=== PATIENT | male | born 1950 | race Caucasian/White ===

== ENCOUNTER 2019-10-16 18:07 | Inpatient (IN) | payer OTHER, MEDICARE ==
[~2019-10-16] VITALS: Ht 188 cm; Wt 99.0 kg
[2019-10-16 18:45] LABS: BASOPHILS % (AUTO) 0.3 % (0-1); EOSINOPHILS # (AUTO) 0.2 X10'3 (0-0.9); EOSINOPHILS % (AUTO) 1.6 % (0-6); HEMATOCRIT 34.9 % (42.0-52.0); HEMOGLOBIN 11.2 g/dl (14.0-17.9); LYMPHOCYTES # (AUTO) 0.5 X10'3 (1.1-4.8); LYMPHOCYTES % (AUTO) 5.6 % (21-51); MEAN CORPUSCULAR HEMOGLOBIN 27.9 PG (27.0-31.0); MEAN CORPUSCULAR HGB CONC 32.1 g/dL (33.0-36.5); MEAN CORPUSCULAR VOLUME 86.8 FL (78-98); MEAN PLATELET VOLUME 7.4 FL (7.4-10.4); MONOCYTES # (AUTO) 0.6 X10'3 (0-0.9); MONOCYTES % (AUTO) 6.5 % (2-12); NEUTROPHILS # (AUTO) 8.4 X10'3 (1.8-7.7); PLATELET COUNT 263 X10'3 (140-440); RED BLOOD COUNT 4.02 X10'6 (4.70-6.10); RED CELL DISTRIBUTION WIDTH 26.1 % (11.5-14.5); WHITE BLOOD COUNT 9.7 X10'3 (4.5-11.0)
[2019-10-16 19:04] LABS: ANISOCYTOSIS 3+; HYPOCHROMASIA 1+; MICROCYTOSIS FEW; PLATELET ESTIMATE NORMAL; POLYCHROMASIA 1+
[2019-10-16 19:05] LABS: ALANINE AMINOTRANSFERASE 20 U/L (12-78); ALBUMIN 2.8 G/DL (3.4-5.0); ALBUMIN/GLOBULIN RATIO 0.6 (1.1-1.5); ALKALINE PHOSPHATASE 135 IU/L (46-116); ANION GAP 9 (8-16); ASPARTATE AMINO TRANSFERASE 21 U/L (10-37); BILIRUBIN,TOTAL 0.6 MG/DL (0.1-1.0); BLOOD UREA NITROGEN 54 MG/DL (7-18); CALCIUM 8.3 MG/DL (8.5-10.1); CHLORIDE 103 MMOL/L (99-107); CREATININE 2.45 MG/DL (0.60-1.10); ELLIPTOCYTES FEW; GLUCOSE 181 MG/DL (70-104); POTASSIUM 4.2 MMOL/L (3.5-5.1); SCHISTOCYTES FEW; SODIUM 140 MMOL/L (135-145); TEAR DROP CELLS FEW; TOTAL CARBON DIOXIDE 27.9 MMOL/L (24-32); TOTAL PROTEIN 7.8 G/DL (6.4-8.2); eGFR 27 ML/MIN
[2019-10-16] MEDS ORDERED: furosemide 10 MG/1 ML 10ml inj IV ONE (20:25)
[2019-10-16] MEDS ORDERED: WARF-113 PO (20:54)
[2019-10-16] MEDS ORDERED: HYDR200T84 PO (20:54)
[2019-10-16] MEDS ORDERED: FURO-150 PO (20:54)
[2019-10-16] MEDS ORDERED: PRED5TAB PO (20:54)
[2019-10-16] MEDS ORDERED: HYDR-4069 PO (20:54)
[2019-10-16] MEDS ORDERED: ALLO100T49 PO (20:54)
[2019-10-16 21:06] LABS: D-DIMER 1.83 MG/L FEU (0-0.50)
[2019-10-16] MEDS ORDERED: ondansetron/PF 4mg/2ml inj IV PRN (21:30)
[2019-10-16] MEDS ORDERED: mag hydrox/Alum hydrox/simeth 30ml oral suspension PO PRN (21:30)
[2019-10-16] MEDS ORDERED: magnesium hydroxide 30ml (MOM) UD suspension PO PRN (21:30)
[2019-10-16] MEDS ORDERED: acetaminophen 325mg tablet PO PRN (21:30)
[2019-10-16] MEDS ORDERED: warfarin 10mg tablet PO ONE (22:10)
--- NOTE | 2019-10-16 22:16 | NUR ---
PER LAB DEIDRE ALVAREZ SWAB IS NEGATIVE. ED ISIAH PEDRO AND ED HORSE [employer]TER PATTY NOTIFIED.
[2019-10-16 22:45] VITALS: BP 115/72
[2019-10-16] MEDS ORDERED: ISOS120T13 PO (22:45)
[2019-10-16] MEDS: hydrALAZINE 25 MG tablet PO SCH (23:03)
[2019-10-17] MEDS ORDERED: predniSONE 1 mg tablet PO ONE (00:50)
[2019-10-17 02:00] VITALS: BP 130/60
[2019-10-17] MEDS ORDERED: acetaminophen 325mg tablet PO PRN (03:50)
--- NOTE | 2019-10-17 06:29 | NUR ---
Patient in room PCU 3012. I have received report from JOSE M Merrill and had the opportunity to ask questions and assume patient care.
--- NOTE | 2019-10-17 06:30 | NUR ---
Problems reprioritized. Patient report given, questions answered & plan of care reviewed with JOSE M Kunz.
[2019-10-17 07:00] VITALS: BP 103/71
[2019-10-17] MEDS ORDERED: warfarin 5mg tablet PO SCH (08:00)
[2019-10-17] MEDS ORDERED: hydroxychloroquine 200mg tablet PO SCH ×2 (08:00→08:29)
[2019-10-17] MEDS: hydrALAZINE 25 MG tablet PO SCH ×2 (08:14→15:31)
[2019-10-17] MEDS: furosemide 20 MG/2 ML vial IV SCH ×2 (08:16→20:52)
[2019-10-17] MEDS: predniSONE 1 mg tablet PO SCH (08:46)
[2019-10-17] MEDS: hydroxychloroquine 200mg tablet PO SCH (08:46)
[2019-10-17 11:00] VITALS: BP 107/68
[2019-10-17 15:00] VITALS: BP 124/78
[2019-10-17 15:29] LABS: BASOPHILS # (AUTO) 0.1 X10'3 (0-0.2); BASOPHILS % (AUTO) 1.1 % (0-1); EOSINOPHILS # (AUTO) 0.1 X10'3 (0-0.9); HEMATOCRIT 33.4 % (42.0-52.0); HEMOGLOBIN 10.7 g/dl (14.0-17.9); LYMPHOCYTES # (AUTO) 0.4 X10'3 (1.1-4.8); LYMPHOCYTES % (AUTO) 5.5 % (21-51); MEAN CORPUSCULAR HEMOGLOBIN 27.9 PG (27.0-31.0); MEAN CORPUSCULAR HGB CONC 32.1 g/dL (33.0-36.5); MEAN CORPUSCULAR VOLUME 86.9 FL (78-98); MEAN PLATELET VOLUME 7.8 FL (7.4-10.4); MONOCYTES # (AUTO) 0.6 X10'3 (0-0.9); MONOCYTES % (AUTO) 8.2 % (2-12); NEUTROPHILS # (AUTO) 6.5 X10'3 (1.8-7.7); NEUTROPHILS % (AUTO) 84.2 % (42-75); PLATELET COUNT 226 X10'3 (140-440); RED BLOOD COUNT 3.84 X10'6 (4.70-6.10); RED CELL DISTRIBUTION WIDTH 26.2 % (11.5-14.5); WHITE BLOOD COUNT 7.7 X10'3 (4.5-11.0)
[2019-10-17 15:55] LABS: ALANINE AMINOTRANSFERASE 20 U/L (12-78); ALBUMIN 2.7 G/DL (3.4-5.0); ALBUMIN/GLOBULIN RATIO 0.6 (1.1-1.5); ALKALINE PHOSPHATASE 128 IU/L (46-116); ANION GAP 6 (8-16); ASPARTATE AMINO TRANSFERASE 21 U/L (10-37); BILIRUBIN,TOTAL 0.5 MG/DL (0.1-1.0); BLOOD UREA NITROGEN 55 MG/DL (7-18); BUN/CREATININE RATIO 23.5 (5.4-32.0); CALCIUM 8.1 MG/DL (8.5-10.1); CHLORIDE 105 MMOL/L (99-107); CREATININE 2.34 MG/DL (0.60-1.10); GLUCOSE 138 MG/DL (70-104); POTASSIUM 4.2 MMOL/L (3.5-5.1); SODIUM 140 MMOL/L (135-145); TOTAL CARBON DIOXIDE 28.8 MMOL/L (24-32); TOTAL PROTEIN 7.2 G/DL (6.4-8.2); eGFR 28 ML/MIN
[2019-10-17 16:00] LABS: ANISOCYTOSIS 3+; HYPOCHROMASIA 1+; PLATELET ESTIMATE NORMAL; SCHISTOCYTES FEW
--- NOTE | 2019-10-17 16:09 | NUR ---
PAGER ID: [phone] MESSAGE: [id number] - Scott Souza: CHRISTY pt last troponin 0.05 -[id number] [phone]
[2019-10-17 18:00] VITALS: BP 112/77
--- NOTE | 2019-10-17 18:21 | NUR ---
Problems reprioritized. Patient report given, questions answered & plan of care reviewed with [place] RN.
--- NOTE | 2019-10-17 18:30 | NUR ---
Patient in room PCU 3012. I have received report from Joaquina SALGUERO and had the opportunity to ask questions and assume patient care.
[2019-10-17] MEDS ORDERED: warfarin 5mg tablet PO ONE (21:00)
[2019-10-17 22:00] VITALS: BP 122/80
[2019-10-18] MEDS: hydrALAZINE 25 MG tablet PO SCH ×2 (00:23→07:25)
[2019-10-18 02:00] VITALS: BP 131/85
[2019-10-18 05:22] LABS: BASOPHILS # (AUTO) 0.1 X10'3 (0-0.2); BASOPHILS % (AUTO) 1.1 % (0-1); EOSINOPHILS # (AUTO) 0.2 X10'3 (0-0.9); EOSINOPHILS % (AUTO) 3.3 % (0-6); HEMATOCRIT 30.4 % (42.0-52.0); HEMOGLOBIN 9.9 g/dl (14.0-17.9); LYMPHOCYTES # (AUTO) 0.7 X10'3 (1.1-4.8); MEAN CORPUSCULAR HEMOGLOBIN 28.2 PG (27.0-31.0); MEAN CORPUSCULAR HGB CONC 32.6 g/dL (33.0-36.5); MEAN CORPUSCULAR VOLUME 86.6 FL (78-98); MEAN PLATELET VOLUME 7.7 FL (7.4-10.4); MONOCYTES # (AUTO) 0.8 X10'3 (0-0.9); MONOCYTES % (AUTO) 11.4 % (2-12); NEUTROPHILS # (AUTO) 5.1 X10'3 (1.8-7.7); NEUTROPHILS % (AUTO) 74.2 % (42-75); PLATELET COUNT 206 X10'3 (140-440); RED CELL DISTRIBUTION WIDTH 25.5 % (11.5-14.5); WHITE BLOOD COUNT 6.9 X10'3 (4.5-11.0)
[2019-10-18 05:43] LABS: ALANINE AMINOTRANSFERASE 18 U/L (12-78); ALBUMIN 2.5 G/DL (3.4-5.0); ALBUMIN/GLOBULIN RATIO 0.6 (1.1-1.5); ALKALINE PHOSPHATASE 109 IU/L (46-116); ANION GAP 10 (8-16); ASPARTATE AMINO TRANSFERASE 26 U/L (10-37); BILIRUBIN,TOTAL 0.5 MG/DL (0.1-1.0); BLOOD UREA NITROGEN 60 MG/DL (7-18); BUN/CREATININE RATIO 26.5 (5.4-32.0); CHLORIDE 105 MMOL/L (99-107); CREATININE 2.26 MG/DL (0.60-1.10); GLUCOSE 104 MG/DL (70-104); SODIUM 141 MMOL/L (135-145); TOTAL CARBON DIOXIDE 25.8 MMOL/L (24-32); TOTAL PROTEIN 6.6 G/DL (6.4-8.2); eGFR 29 ML/MIN
[2019-10-18 05:46] LABS: POTASSIUM 3.9 MMOL/L (3.5-5.1)
--- NOTE | 2019-10-18 06:05 | NUR ---
Problems reprioritized. Patient report given, questions answered & plan of care reviewed with Joaquina SALGUERO.
--- NOTE | 2019-10-18 06:08 | NUR ---
Patient in room PCU 3012. I have received report from JOSE M Salvador and had the opportunity to ask questions and assume patient care.
[2019-10-18 07:00] VITALS: BP 115/73
[2019-10-18 07:07] LABS: ANISOCYTOSIS 3+; PLATELET ESTIMATE NORMAL
[2019-10-18 07:08] LABS: POIKILOCYTOSIS FEW; POLYCHROMASIA FEW
[2019-10-18] MEDS: furosemide 20 MG/2 ML vial IV SCH (07:25)
[2019-10-18] MEDS: hydroxychloroquine 200mg tablet PO SCH (07:25)
[2019-10-18] MEDS: predniSONE 1 mg tablet PO SCH (07:25)
[2019-10-18 11:00] VITALS: BP 124/9
[2019-10-18] MEDS ORDERED: FURO40TA4 PO (11:49)
--- NOTE | 2019-10-18 14:47 | NUR ---
Pt stable for discharge. Provided discharge education and instructions and answered any questions or concerns pt may have. New medication sent to preferred pharmacy. Attempted multiple times to make appt with Dr. Hutchinson r/t pt CHF dx, but there was no answer from staff. Tele monitor removed. PIV removed, cannula intact. All belongings sent with pt. Aide transported pt downstairs via wheelchair for pt to be picked up by in private vehicle.
[2019-10-18] MEDS ORDERED: warfarin 5mg tablet PO ONE (21:00)
== END 2019-10-18 14:58 | disposition home or self-care (01) | DRG 292 ==
LOC: ER 18:08 → ED HOLD 21:26 → PCU 3S 23:15
PROVIDERS: ADMIT Internal Medicine; ATTEND Internal Medicine
PROC: 4A02XM4 Measurement of Cardiac Total Activity, External Approach (ICD-10-PCS; principal; 2019-10-17)
PROC: 3E033HZ Introduction of Radioactive Substance into Peripheral Vein, Percutaneous Approach (ICD-10-PCS; 2019-10-17)
DX: I50.23 Acute on chronic systolic (congestive) heart failure (principal); N17.9 Acute kidney failure, unspecified; D64.9 Anemia, unspecified; N18.9 Chronic kidney disease, unspecified; I25.10 Atherosclerotic heart disease of native coronary artery without angina pectoris; M19.90 Unspecified osteoarthritis, unspecified site; I48.0 Paroxysmal atrial fibrillation; Z79.899 Other long term (current) drug therapy; Z20.828 Contact with and (suspected) exposure to other viral communicable diseases
CPT/HCPCS: 36415; 71045; 78582; 80053; 83880; 84145; 84484; 85025; 85379; 85610; 87081; 87635; 93005; 93306; 99285; A9539; A9540; G0378; J1940; J7512

== ENCOUNTER 2023-04-04 20:52 | Inpatient (IN) | payer OTHER, MEDICARE ==
[~2023-04-04] VITALS: Ht 177.8 cm; Wt 88.6 kg
[~2023-04-04 20:52] MED LIST: ALLO100T49 PO; CHOL100046 PO; FERR-119 PO; HYDR200T73 PO; LISI10TA27 PO; METO-384; MULT-1085 PO; PRE1T PO; SPIR25TA5 PO; WARF-65 PO; WARF6TAB49 PO
[2023-04-04 22:24] LABS: BASOPHILS % (AUTO) 0.7 % (0-1); EOSINOPHILS # (AUTO) 0.2 X10'3 (0-0.9); EOSINOPHILS % (AUTO) 2.3 % (0-6); HEMATOCRIT 39.1 % (42.0-52.0); HEMOGLOBIN 12.7 g/dl (14.0-17.9); LYMPHOCYTES # (AUTO) 0.2 X10'3 (1.1-4.8); LYMPHOCYTES % (AUTO) 3.2 % (21-51); MEAN CORPUSCULAR HEMOGLOBIN 30.4 PG (27.0-31.0); MEAN CORPUSCULAR HGB CONC 32.4 g/dL (33.0-36.5); MEAN CORPUSCULAR VOLUME 94.1 FL (78-98); MEAN PLATELET VOLUME 7.8 FL (7.4-10.4); MONOCYTES # (AUTO) 0.4 X10'3 (0-0.9); MONOCYTES % (AUTO) 5.3 % (2-12); NEUTROPHILS # (AUTO) 6.2 X10'3 (1.8-7.7); NEUTROPHILS % (AUTO) 88.5 % (42-75); PLATELET COUNT 161 X10'3 (140-440); RED BLOOD COUNT 4.16 X10'6 (4.70-6.10); RED CELL DISTRIBUTION WIDTH 22.6 % (11.5-14.5)
[2023-04-04 22:33] LABS: ALANINE AMINOTRANSFERASE 27 U/L (12-78); ALBUMIN/GLOBULIN RATIO 0.4 (1.1-1.5); ALKALINE PHOSPHATASE 204 IU/L (46-116); ANION GAP 9 (8-16); ASPARTATE AMINO TRANSFERASE 29 U/L (10-37); BILIRUBIN,TOTAL 1.1 MG/DL (0.1-1.0); BLOOD UREA NITROGEN 80 MG/DL (7-18); BUN/CREATININE RATIO 28.2 (10.0-20.0); CALCIUM 8.3 MG/DL (8.5-10.1); CHLORIDE 106 MMOL/L (99-107); CREATININE 2.84 MG/DL (0.60-1.10); POTASSIUM 4.6 MMOL/L (3.5-5.1); SODIUM 139 MMOL/L (135-145); TOTAL CARBON DIOXIDE 23.7 MMOL/L (24-32); TOTAL PROTEIN 6.9 G/DL (6.4-8.2); eCRCL 25 ML/MIN; eGFR 22 ML/MIN
[2023-04-04 22:36] LABS: PROTHROMBIN TIME 56.5 SECONDS (9.0-12.0)
[2023-04-04] MEDS ORDERED: CefTRIAXone/D5W-Rocephin 1gm 50 ML IV ONE (23:10)
[2023-04-04] MEDS ORDERED: azithromycin/NS 500mg/250ml 250 ML IV ONE (23:10)
[2023-04-04 23:18] LABS: ANISOCYTOSIS 3+; ELLIPTOCYTES FEW; PLATELET ESTIMATE NORMAL; SCHISTOCYTES FEW; TEAR DROP CELLS FEW
[2023-04-04 23:24] LABS: INR 5.9 INR
[2023-04-04 23:25] LABS: PRO BRAIN NATRIURETIC PEPTIDE > 30000 PG/ML (0-125)
[2023-04-04 23:31] LABS: GLUCOSE 99 MG/DL (70-104)
[2023-04-05] MEDS ORDERED: bisacodyl 10mg suppository rectal RC PRN (01:25)
[2023-04-05] MEDS ORDERED: mag hydrox/Alum hydrox/simeth 30ml oral suspension PO PRN (01:25)
[2023-04-05] MEDS ORDERED: diphenhydrAMINE 50 mg/ml inj IV PRN (01:25)
[2023-04-05] MEDS ORDERED: diphenhydrAMINE 25mg capsule PO PRN (01:25)
[2023-04-05] MEDS ORDERED: acetaminophen 650mg rectal suppository RC PRN (01:25)
[2023-04-05] MEDS ORDERED: magnesium hydroxide 30ml (MOM) UD suspension PO PRN (01:25)
[2023-04-05] MEDS ORDERED: ondansetron/PF 4mg/2ml inj IV PRN (01:25)
[2023-04-05] MEDS ORDERED: morphine 2 MG/ML inj. syringe IV PRN ×2 (01:25)
[2023-04-05] MEDS ORDERED: HYDROcodone/acetaminophen 5mg/325mg tablet PO PRN (01:25)
[2023-04-05] MEDS: normal saline 1000ml 1,000 ML IV SCH (01:25)
[2023-04-05] MEDS ORDERED: acetaminophen 325mg tablet PO PRN (01:25)
[2023-04-05] MEDS ORDERED: ipratropium/albuterol 3ml nebule NEB PRN (01:25)
[2023-04-05 02:21] LABS: BILIRUBIN,URINE NEGATIVE (Neg); CLARITY,URINE CLEAR (Clear); COLOR,URINE YELLOW (Yellow); GLUCOSE, URINE NEGATIVE (Neg); KETONES,URINE NEGATIVE (Neg); LEUKOCYTE ESTERASE ,URINE NEGATIVE (Neg); NITRITES, URINE NEGATIVE (Neg); OCCULT BLOOD,URINE NEGATIVE (Neg); PH,URINE 5.5 (4.8-8.0); PROTEIN,URINE NEGATIVE (Neg); UROBILINOGEN,URINE 0.2 E.U/dL (0.2-1.0)
[2023-04-05 02:30] LABS: UA COLLECTION TYPE URINAL
[2023-04-05 02:41] LABS: MAGNESIUM 2.3 MG/DL (1.5-2.4); PHOSPHORUS 6.1 MG/DL (2.3-4.5)
[2023-04-05 02:44] LABS: APTT 44 SECONDS (22-32); D-DIMER 1.66 MG/L FEU (0-0.50); PROTHROMBIN TIME 52.3 SECONDS (9.0-12.0)
[2023-04-05 02:50] LABS: HEMOGLOBIN A1C 5.8 % (4.5-6.2)
[2023-04-05 02:55] LABS: INR 5.4 INR
[2023-04-05 04:02] VITALS: PULSE 70; RESP 20; O2SAT 96
[2023-04-05] MEDS: pantoprazole 40mg Tablet.DR PO SCH (07:27)
[2023-04-05] MEDS: docusate sod 100mg capsule PO SCH ×2 (07:28→20:00)
[2023-04-05] MEDS: furosemide 10 MG/1 ML 10ml inj IV SCH ×2 (08:00→20:16)
[2023-04-05 16:45] VITALS: RESP 16
[2023-04-05 19:00] VITALS: RESP 18; O2SAT 90
[2023-04-05 19:30] VITALS: PULSE 70; RESP 18; O2SAT 97
[2023-04-05] MEDS ORDERED: temazepam 15mg capsule PO PRN (21:00)
[2023-04-05 22:00] VITALS: BP 107/75; PULSE 52; RESP 19; TEMP 97.6; O2SAT 90
[2023-04-05] MEDS: acetaminophen 325mg tablet PO PRN (23:43)
[2023-04-06] VITALS (9 sets, daily range): BP systolic 100–113; BP diastolic 64–81; PULSE 69–81; RESP 12–21; TEMP 97.3–98.2; O2SAT 90–98
[2023-04-06] MEDS ORDERED: WARF4TAB69 PO (00:05)
[2023-04-06] MEDS: docusate sod 100mg capsule PO SCH ×2 (08:00→20:00)
[2023-04-06 08:31] LABS: BASOPHILS # (AUTO) 0.1 X10'3 (0-0.2); BASOPHILS % (AUTO) 0.9 % (0-1); EOSINOPHILS # (AUTO) 0.3 X10'3 (0-0.9); EOSINOPHILS % (AUTO) 3.7 % (0-6); HEMATOCRIT 35.7 % (42.0-52.0); HEMOGLOBIN 11.7 g/dl (14.0-17.9); LYMPHOCYTES # (AUTO) 0.2 X10'3 (1.1-4.8); LYMPHOCYTES % (AUTO) 2.8 % (21-51); MEAN CORPUSCULAR HGB CONC 32.8 g/dL (33.0-36.5); MEAN CORPUSCULAR VOLUME 94.4 FL (78-98); MEAN PLATELET VOLUME 8.5 FL (7.4-10.4); MONOCYTES # (AUTO) 0.3 X10'3 (0-0.9); MONOCYTES % (AUTO) 4.2 % (2-12); NEUTROPHILS # (AUTO) 6.8 X10'3 (1.8-7.7); NEUTROPHILS % (AUTO) 88.4 % (42-75); PLATELET COUNT 147 X10'3 (140-440); RED BLOOD COUNT 3.78 X10'6 (4.70-6.10); RED CELL DISTRIBUTION WIDTH 22.7 % (11.5-14.5); WHITE BLOOD COUNT 7.7 X10'3 (4.5-11.0)
[2023-04-06 08:48] LABS: ALANINE AMINOTRANSFERASE 27 U/L (12-78); ALBUMIN 1.8 G/DL (3.4-5.0); ALBUMIN/GLOBULIN RATIO 0.4 (1.1-1.5); ALKALINE PHOSPHATASE 211 IU/L (46-116); ANION GAP 11 (8-16); ASPARTATE AMINO TRANSFERASE 30 U/L (10-37); BILIRUBIN,TOTAL 0.9 MG/DL (0.1-1.0); BLOOD UREA NITROGEN 87 MG/DL (7-18); BUN/CREATININE RATIO 29.4 (10.0-20.0); CALCIUM 8.5 MG/DL (8.5-10.1); CHLORIDE 105 MMOL/L (99-107); CHOL/HDL RATIO 2.8 (0.00-4.99); CHOLESTEROL 72 MG/DL (0-200); CREATININE 2.96 MG/DL (0.60-1.10); GLUCOSE 109 MG/DL (70-104); HDL CHOLESTEROL 26 MG/DL (35-60); LDL CHOLESTEROL 38 MG/DL (50-100); POTASSIUM 4.9 MMOL/L (3.5-5.1); SODIUM 137 MMOL/L (135-145); TOTAL CARBON DIOXIDE 21.3 MMOL/L (24-32); TOTAL PROTEIN 6.5 G/DL (6.4-8.2); TRIGLYCERIDES 56 MG/DL (20-135); eCRCL 24 ML/MIN; eGFR 21 ML/MIN
[2023-04-06] MEDS ORDERED: PRE1T PO (10:45)
[2023-04-06] MEDS ORDERED: CHOL100046 PO (10:45)
[2023-04-06] MEDS ORDERED: SPIR25TA5 PO (10:45)
[2023-04-06] MEDS: furosemide 10 MG/1 ML 10ml inj IV SCH (10:55)
[2023-04-06] MEDS: pantoprazole 40mg Tablet.DR PO SCH (18:51)
[2023-04-06] MEDS: acetaminophen 325mg tablet PO PRN (23:48)
[2023-04-07] VITALS (8 sets, daily range): BP systolic 110–145; BP diastolic 61–89; PULSE 60–81; RESP 16–22; TEMP 96.7–98; O2SAT 90–100
[2023-04-07] MEDS: normal saline 1000ml 1,000 ML IV SCH (01:25)
[2023-04-07 07:39] LABS: BASOPHILS # (AUTO) 0.1 X10'3 (0-0.2); BASOPHILS % (AUTO) 1.1 % (0-1); EOSINOPHILS # (AUTO) 0.3 X10'3 (0-0.9); EOSINOPHILS % (AUTO) 3.3 % (0-6); HEMATOCRIT 35.3 % (42.0-52.0); HEMOGLOBIN 11.6 g/dl (14.0-17.9); LYMPHOCYTES # (AUTO) 0.3 X10'3 (1.1-4.8); LYMPHOCYTES % (AUTO) 3.3 % (21-51); MEAN CORPUSCULAR HEMOGLOBIN 30.8 PG (27.0-31.0); MEAN CORPUSCULAR VOLUME 93.4 FL (78-98); MEAN PLATELET VOLUME 8.1 FL (7.4-10.4); MONOCYTES # (AUTO) 0.3 X10'3 (0-0.9); MONOCYTES % (AUTO) 3.4 % (2-12); NEUTROPHILS # (AUTO) 6.9 X10'3 (1.8-7.7); NEUTROPHILS % (AUTO) 88.9 % (42-75); PLATELET COUNT 140 X10'3 (140-440); RED BLOOD COUNT 3.79 X10'6 (4.70-6.10); RED CELL DISTRIBUTION WIDTH 22.4 % (11.5-14.5); WHITE BLOOD COUNT 7.8 X10'3 (4.5-11.0)
[2023-04-07] MEDS: docusate sod 100mg capsule PO SCH ×2 (08:00→20:00)
[2023-04-07] MEDS: hydroxychloroquine 200mg tablet PO SCH (08:00)
[2023-04-07] MEDS ORDERED: allopurinol 100mg tablet PO SCH (08:00)
[2023-04-07 08:14] LABS: ALANINE AMINOTRANSFERASE 29 U/L (12-78); ALBUMIN 1.7 G/DL (3.4-5.0); ALBUMIN/GLOBULIN RATIO 0.4 (1.1-1.5); ALKALINE PHOSPHATASE 212 IU/L (46-116); ANION GAP 11 (8-16); ASPARTATE AMINO TRANSFERASE 31 U/L (10-37); BILIRUBIN,TOTAL 1.1 MG/DL (0.1-1.0); BLOOD UREA NITROGEN 85 MG/DL (7-18); BUN/CREATININE RATIO 30.2 (10.0-20.0); CALCIUM 8.5 MG/DL (8.5-10.1); CHLORIDE 104 MMOL/L (99-107); CREATININE 2.81 MG/DL (0.60-1.10); GLUCOSE 102 MG/DL (70-104); SODIUM 136 MMOL/L (135-145); TOTAL CARBON DIOXIDE 21.5 MMOL/L (24-32); TOTAL PROTEIN 6.5 G/DL (6.4-8.2); eCRCL 25 ML/MIN; eGFR 22 ML/MIN
[2023-04-07] MEDS ORDERED: allopurinol 100mg tablet PO ONE (08:45)
[2023-04-07] MEDS: pantoprazole 40mg Tablet.DR PO SCH (08:47)
[2023-04-07] MEDS: predniSONE 1 mg tablet PO SCH (08:47)
[2023-04-07] MEDS: multivitamins, therapeutics tablet PO SCH (08:49)
[2023-04-07] MEDS: cholecalciferol (vitamin D3) 1,000 unit (25mcg) tablet PO SCH (08:49)
[2023-04-07 08:50] LABS: ANISOCYTOSIS 3+; ELLIPTOCYTES FEW; PLATELET ESTIMATE NORMAL; POLYCHROMASIA FEW; ROULEAUX 1+; TEAR DROP CELLS FEW
[2023-04-07] MEDS: metoprolol succinate 25mg (24-HOUR) SR. Tablet PO SCH (08:50)
[2023-04-07] MEDS: spironolactone 25 MG tablet PO SCH (08:51)
[2023-04-07 20:16] LABS: INR 2.8 INR; PROTHROMBIN TIME 28.5 SECONDS (9.0-12.0)
[2023-04-08] VITALS (10 sets, daily range): BP systolic 94–123; BP diastolic 55–86; PULSE 57–86; RESP 16–27; TEMP 97.5–98; O2SAT 92–100
[2023-04-08] MEDS: acetaminophen 325mg tablet PO PRN ×2 (01:52→22:41)
[2023-04-08 06:38] LABS: BASOPHILS # (AUTO) 0.1 X10'3 (0-0.2); BASOPHILS % (AUTO) 0.8 % (0-1); EOSINOPHILS # (AUTO) 0.3 X10'3 (0-0.9); EOSINOPHILS % (AUTO) 3.5 % (0-6); HEMATOCRIT 34.6 % (42.0-52.0); HEMOGLOBIN 11.4 g/dl (14.0-17.9); LYMPHOCYTES # (AUTO) 0.2 X10'3 (1.1-4.8); LYMPHOCYTES % (AUTO) 3.3 % (21-51); MEAN CORPUSCULAR HGB CONC 33.1 g/dL (33.0-36.5); MEAN CORPUSCULAR VOLUME 93.8 FL (78-98); MEAN PLATELET VOLUME 8.1 FL (7.4-10.4); MONOCYTES # (AUTO) 0.4 X10'3 (0-0.9); MONOCYTES % (AUTO) 5.7 % (2-12); NEUTROPHILS # (AUTO) 6.5 X10'3 (1.8-7.7); NEUTROPHILS % (AUTO) 86.7 % (42-75); PLATELET COUNT 149 X10'3 (140-440); RED BLOOD COUNT 3.69 X10'6 (4.70-6.10); RED CELL DISTRIBUTION WIDTH 22.4 % (11.5-14.5); WHITE BLOOD COUNT 7.5 X10'3 (4.5-11.0)
[2023-04-08 06:53] LABS: INR 2.8 INR
[2023-04-08 07:18] LABS: ALANINE AMINOTRANSFERASE 32 U/L (12-78); ALBUMIN 1.6 G/DL (3.4-5.0); ALBUMIN/GLOBULIN RATIO 0.3 (1.1-1.5); ALKALINE PHOSPHATASE 227 IU/L (46-116); ANION GAP 10 (8-16); ASPARTATE AMINO TRANSFERASE 34 U/L (10-37); BILIRUBIN,TOTAL 0.9 MG/DL (0.1-1.0); BLOOD UREA NITROGEN 84 MG/DL (7-18); BUN/CREATININE RATIO 31.7 (10.0-20.0); CALCIUM 8.3 MG/DL (8.5-10.1); CHLORIDE 103 MMOL/L (99-107); CREATININE 2.65 MG/DL (0.60-1.10); GLUCOSE 115 MG/DL (70-104); POTASSIUM 5.2 MMOL/L (3.5-5.1); SODIUM 135 MMOL/L (135-145); TOTAL CARBON DIOXIDE 21.7 MMOL/L (24-32); TOTAL PROTEIN 6.2 G/DL (6.4-8.2); eCRCL 27 ML/MIN; eGFR 24 ML/MIN
[2023-04-08] MEDS: spironolactone 25 MG tablet PO SCH (07:38)
[2023-04-08] MEDS: multivitamins, therapeutics tablet PO SCH (07:39)
[2023-04-08] MEDS: predniSONE 1 mg tablet PO SCH (07:39)
[2023-04-08] MEDS: pantoprazole 40mg Tablet.DR PO SCH (07:39)
[2023-04-08] MEDS: cholecalciferol (vitamin D3) 1,000 unit (25mcg) tablet PO SCH (07:39)
[2023-04-08] MEDS: allopurinol 100mg tablet PO SCH (07:40)
[2023-04-08] MEDS: EMPAGLIFLOZIN 10 MG TABLET PO SCH (07:40)
[2023-04-08] MEDS: metoprolol succinate 25mg (24-HOUR) SR. Tablet PO SCH (07:41)
[2023-04-08] MEDS: hydroxychloroquine 200mg tablet PO SCH (07:41)
[2023-04-08 07:55] LABS: ANISOCYTOSIS 3+; PLATELET ESTIMATE NORMAL
[2023-04-08 07:56] LABS: POIKILOCYTOSIS FEW; ROULEAUX 1+
[2023-04-08] MEDS: docusate sod 100mg capsule PO SCH ×2 (08:00→20:00)
[2023-04-08] MEDS ORDERED: furosemide 40mg/4ml inj IV SCH (08:25)
[2023-04-08] MEDS: bumetanide 1mg tablet PO SCH ×2 (19:45→23:18)
[2023-04-08] MEDS ORDERED: warfarin 3mg tablet PO ONE (21:00)
[2023-04-09] VITALS (9 sets, daily range): BP systolic 82–124; BP diastolic 55–78; PULSE 65–76; RESP 16–23; TEMP 97.7–98.6; O2SAT 94–99
[2023-04-09] MEDS ORDERED: potassium CL 10mEq/100ml bag 100 ML IV PRN (01:20)
[2023-04-09] MEDS ORDERED: potassium Cl 20mEq/100mL bag 100 ML IV PRN (01:20)
[2023-04-09] MEDS ORDERED: potassium Cl 20 mEq SR tablet PO PRN (01:20)
[2023-04-09] MEDS ORDERED: magnesium 4gm in 100ml NS 100 ML IV PRN (01:20)
[2023-04-09] MEDS ORDERED: magnesium 2GM in 50ml NS 50 ML IV PRN (01:20)
[2023-04-09] MEDS ORDERED: potassium Cl 40MEQ/1/2NS 520ml 520 ML IV PRN (01:20)
[2023-04-09] MEDS ORDERED: potassium Cl 40MEQ/270ML bag 250 ML IV PRN (01:20)
[2023-04-09 06:24] LABS: INR 2.1 INR; PROTHROMBIN TIME 21.5 SECONDS (9.0-12.0)
[2023-04-09 06:35] LABS: BASOPHILS # (AUTO) 0.1 X10'3 (0-0.2); BASOPHILS % (AUTO) 1.1 % (0-1); EOSINOPHILS # (AUTO) 0.3 X10'3 (0-0.9); EOSINOPHILS % (AUTO) 4.2 % (0-6); HEMATOCRIT 36.3 % (42.0-52.0); HEMOGLOBIN 11.9 g/dl (14.0-17.9); LYMPHOCYTES # (AUTO) 0.3 X10'3 (1.1-4.8); MEAN CORPUSCULAR HEMOGLOBIN 30.7 PG (27.0-31.0); MEAN CORPUSCULAR HGB CONC 32.7 g/dL (33.0-36.5); MEAN CORPUSCULAR VOLUME 93.8 FL (78-98); MEAN PLATELET VOLUME 8.1 FL (7.4-10.4); MONOCYTES # (AUTO) 0.4 X10'3 (0-0.9); MONOCYTES % (AUTO) 5.9 % (2-12); NEUTROPHILS # (AUTO) 5.7 X10'3 (1.8-7.7); NEUTROPHILS % (AUTO) 84.8 % (42-75); PLATELET COUNT 160 X10'3 (140-440); RED BLOOD COUNT 3.87 X10'6 (4.70-6.10); RED CELL DISTRIBUTION WIDTH 21.7 % (11.5-14.5); WHITE BLOOD COUNT 6.7 X10'3 (4.5-11.0)
[2023-04-09 06:53] LABS: % IRON SATURATION 11 % (11-46); IRON 19 UG/DL (53-167); TOTAL IRON BINDING CAPACITY 173 UG/DL (259-388)
[2023-04-09 07:01] LABS: ALANINE AMINOTRANSFERASE 42 U/L (12-78); ALBUMIN 1.7 G/DL (3.4-5.0); ALBUMIN/GLOBULIN RATIO 0.3 (1.1-1.5); ALKALINE PHOSPHATASE 287 IU/L (46-116); ANION GAP 8 (8-16); ASPARTATE AMINO TRANSFERASE 41 U/L (10-37); BILIRUBIN,TOTAL 1.1 MG/DL (0.1-1.0); BLOOD UREA NITROGEN 82 MG/DL (7-18); BUN/CREATININE RATIO 33.1 (10.0-20.0); CALCIUM 8.7 MG/DL (8.5-10.1); CHLORIDE 103 MMOL/L (99-107); CREATININE 2.48 MG/DL (0.60-1.10); FERRITIN 507 NG/ML (26-388); GLUCOSE 102 MG/DL (70-104); POTASSIUM 5.3 MMOL/L (3.5-5.1); SODIUM 134 MMOL/L (135-145); TOTAL CARBON DIOXIDE 23.1 MMOL/L (24-32); TOTAL PROTEIN 6.7 G/DL (6.4-8.2); eCRCL 29 ML/MIN; eGFR 26 ML/MIN
[2023-04-09] MEDS: docusate sod 100mg capsule PO SCH ×2 (08:00→19:21)
[2023-04-09] MEDS: spironolactone 25 MG tablet PO SCH (08:00)
[2023-04-09] MEDS: allopurinol 100mg tablet PO SCH (08:59)
[2023-04-09] MEDS: cholecalciferol (vitamin D3) 1,000 unit (25mcg) tablet PO SCH (08:59)
[2023-04-09] MEDS: EMPAGLIFLOZIN 10 MG TABLET PO SCH (08:59)
[2023-04-09] MEDS: predniSONE 1 mg tablet PO SCH (08:59)
[2023-04-09] MEDS: metoprolol succinate 25mg (24-HOUR) SR. Tablet PO SCH (08:59)
[2023-04-09] MEDS: multivitamins, therapeutics tablet PO SCH (09:00)
[2023-04-09] MEDS: bumetanide 1mg tablet PO SCH ×2 (09:00→20:05)
[2023-04-09] MEDS: pantoprazole 40mg Tablet.DR PO SCH (09:11)
[2023-04-09] MEDS: hydroxychloroquine 200mg tablet PO SCH (10:39)
[2023-04-09 10:57] LABS: MAGNESIUM 2.7 MG/DL (1.5-2.4)
[2023-04-09] MEDS ORDERED: magnesium Cl slow-release 64mg tablet PO SCH (11:15)
[2023-04-09] MEDS: ondansetron 4mg rapidly disintigrating tab PO PRN (15:06)
[2023-04-09] MEDS: iron sucrose complex injection 200 MG in normal saline 100ml IV soln 100 ML IV SCH (17:22)
[2023-04-09] MEDS ORDERED: warfarin 4mg tablet PO ONE (21:00)
[2023-04-10] VITALS (8 sets, daily range): BP systolic 97–117; BP diastolic 62–74; PULSE 70–82; RESP 16–21; TEMP 98.2–98.6; O2SAT 92–98
[2023-04-10 06:45] LABS: BASOPHILS # (AUTO) 0.1 X10'3 (0-0.2); EOSINOPHILS # (AUTO) 0.2 X10'3 (0-0.9); EOSINOPHILS % (AUTO) 2.5 % (0-6); HEMATOCRIT 33.9 % (42.0-52.0); HEMOGLOBIN 11.1 g/dl (14.0-17.9); LYMPHOCYTES # (AUTO) 0.2 X10'3 (1.1-4.8); LYMPHOCYTES % (AUTO) 3.4 % (21-51); MEAN CORPUSCULAR HEMOGLOBIN 30.9 PG (27.0-31.0); MEAN CORPUSCULAR HGB CONC 32.8 g/dL (33.0-36.5); MEAN PLATELET VOLUME 8.6 FL (7.4-10.4); MONOCYTES # (AUTO) 0.6 X10'3 (0-0.9); MONOCYTES % (AUTO) 8.7 % (2-12); NEUTROPHILS # (AUTO) 6.1 X10'3 (1.8-7.7); NEUTROPHILS % (AUTO) 84.4 % (42-75); PLATELET COUNT 166 X10'3 (140-440); RED CELL DISTRIBUTION WIDTH 22.2 % (11.5-14.5); WHITE BLOOD COUNT 7.3 X10'3 (4.5-11.0)
[2023-04-10 06:47] LABS: INR 1.8 INR; PROTHROMBIN TIME 18.9 SECONDS (9.0-12.0)
[2023-04-10 06:53] LABS: ALANINE AMINOTRANSFERASE 32 U/L (12-78); ALBUMIN 1.6 G/DL (3.4-5.0); ALBUMIN/GLOBULIN RATIO 0.3 (1.1-1.5); ALKALINE PHOSPHATASE 270 IU/L (46-116); ANION GAP 8 (8-16); ASPARTATE AMINO TRANSFERASE 31 U/L (10-37); BILIRUBIN,TOTAL 1.1 MG/DL (0.1-1.0); BLOOD UREA NITROGEN 85 MG/DL (7-18); BUN/CREATININE RATIO 32.4 (10.0-20.0); CALCIUM 8.4 MG/DL (8.5-10.1); CHLORIDE 100 MMOL/L (99-107); CREATININE 2.62 MG/DL (0.60-1.10); GLUCOSE 99 MG/DL (70-104); MAGNESIUM 2.4 MG/DL (1.5-2.4); POTASSIUM 4.9 MMOL/L (3.5-5.1); SODIUM 133 MMOL/L (135-145); TOTAL CARBON DIOXIDE 25.5 MMOL/L (24-32); TOTAL PROTEIN 6.6 G/DL (6.4-8.2); eCRCL 27 ML/MIN; eGFR 24 ML/MIN
[2023-04-10 07:58] LABS: PLATELET ESTIMATE NORMAL
[2023-04-10 07:59] LABS: ANISOCYTOSIS 3+; ELLIPTOCYTES FEW; ROULEAUX 1+
[2023-04-10] MEDS: magnesium Cl slow-release 64mg tablet PO SCH ×2 (08:00→20:00)
[2023-04-10] MEDS: bumetanide 1mg tablet PO SCH ×3 (08:00→20:47)
[2023-04-10] MEDS: spironolactone 25 MG tablet PO SCH ×2 (08:00→15:14)
[2023-04-10] MEDS: metoprolol succinate 25mg (24-HOUR) SR. Tablet PO SCH (08:00)
[2023-04-10] MEDS: docusate sod 100mg capsule PO SCH (08:00)
[2023-04-10] MEDS: predniSONE 1 mg tablet PO SCH (08:25)
[2023-04-10] MEDS: EMPAGLIFLOZIN 10 MG TABLET PO SCH (08:26)
[2023-04-10] MEDS: multivitamins, therapeutics tablet PO SCH (08:26)
[2023-04-10] MEDS: pantoprazole 40mg Tablet.DR PO SCH (08:26)
[2023-04-10] MEDS: cholecalciferol (vitamin D3) 1,000 unit (25mcg) tablet PO SCH (08:26)
[2023-04-10] MEDS: allopurinol 100mg tablet PO SCH (08:26)
[2023-04-10] MEDS: iron sucrose complex injection 200 MG in normal saline 100ml IV soln 100 ML IV SCH (09:55)
[2023-04-10] MEDS: hydroxychloroquine 200mg tablet PO SCH (10:01)
[2023-04-10] MEDS: acetaminophen 325mg tablet PO PRN (17:59)
[2023-04-10] MEDS ORDERED: warfarin 3mg tablet PO ONE (21:00)
[2023-04-11] VITALS (7 sets, daily range): BP systolic 112–124; BP diastolic 58–77; PULSE 65–80; RESP 14–21; TEMP 98–98.4; O2SAT 93–98
[2023-04-11] MEDS: ondansetron 4mg rapidly disintigrating tab PO PRN ×2 (04:20→17:53)
[2023-04-11] MEDS: acetaminophen 325mg tablet PO PRN ×2 (04:36→20:54)
[2023-04-11 07:03] LABS: PROTHROMBIN TIME 20.6 SECONDS (9.0-12.0)
[2023-04-11] MEDS: magnesium Cl slow-release 64mg tablet PO SCH ×2 (08:00→18:52)
[2023-04-11] MEDS: cholecalciferol (vitamin D3) 1,000 unit (25mcg) tablet PO SCH (08:04)
[2023-04-11] MEDS: pantoprazole 40mg Tablet.DR PO SCH (08:04)
[2023-04-11] MEDS: iron sucrose complex injection 200 MG in normal saline 100ml IV soln 100 ML IV SCH (08:04)
[2023-04-11] MEDS: predniSONE 1 mg tablet PO SCH (08:05)
[2023-04-11] MEDS: metoprolol succinate 25mg (24-HOUR) SR. Tablet PO SCH (08:05)
[2023-04-11] MEDS: EMPAGLIFLOZIN 10 MG TABLET PO SCH (08:05)
[2023-04-11] MEDS: allopurinol 100mg tablet PO SCH (08:06)
[2023-04-11] MEDS: ESCITALOPRAM 10 mg tablet 10 MG TABLET PO SCH (08:06)
[2023-04-11] MEDS: bumetanide 1mg tablet PO SCH ×2 (08:06→19:41)
[2023-04-11] MEDS: multivitamins, therapeutics tablet PO SCH (08:07)
[2023-04-11] MEDS: spironolactone 25 MG tablet PO SCH (08:09)
[2023-04-11 12:14] LABS: FREE T4 (FREE THYROXINE) 1.05 NG/DL (0.73-1.40); THYROID STIMULATING HORMONE 2.69 ulU/ml (0.34-4.50)
[2023-04-11] MEDS: hydroxychloroquine 200mg tablet PO SCH (13:39)
[2023-04-11] MEDS ORDERED: warfarin 3mg tablet PO ONE (21:00)
[2023-04-12] VITALS (8 sets, daily range): BP systolic 100–113; BP diastolic 62–72; PULSE 17–78; RESP 13–19; TEMP 97.3–98.1; O2SAT 95–100
[2023-04-12] MEDS: iron sucrose complex injection 200 MG in normal saline 100ml IV soln 100 ML IV SCH (07:21)
[2023-04-12] MEDS: ESCITALOPRAM 10 mg tablet 10 MG TABLET PO SCH (07:27)
[2023-04-12] MEDS: multivitamins, therapeutics tablet PO SCH (07:28)
[2023-04-12] MEDS: hydroxychloroquine 200mg tablet PO SCH (07:28)
[2023-04-12] MEDS: bumetanide 1mg tablet PO SCH (07:28)
[2023-04-12] MEDS: EMPAGLIFLOZIN 10 MG TABLET PO SCH (07:29)
[2023-04-12] MEDS: metoprolol succinate 25mg (24-HOUR) SR. Tablet PO SCH (07:29)
[2023-04-12] MEDS: pantoprazole 40mg Tablet.DR PO SCH (07:29)
[2023-04-12] MEDS: predniSONE 1 mg tablet PO SCH (07:29)
[2023-04-12] MEDS: allopurinol 100mg tablet PO SCH (07:29)
[2023-04-12] MEDS: cholecalciferol (vitamin D3) 1,000 unit (25mcg) tablet PO SCH (07:29)
[2023-04-12] MEDS: spironolactone 25 MG tablet PO SCH (07:30)
[2023-04-12] MEDS: acetaminophen 325mg tablet PO PRN ×2 (07:34→21:39)
[2023-04-12 07:51] LABS: INR 2.5 INR; PROTHROMBIN TIME 25.2 SECONDS (9.0-12.0)
[2023-04-12 08:12] LABS: ALANINE AMINOTRANSFERASE 35 U/L (12-78); ALBUMIN 1.8 G/DL (3.4-5.0); ALBUMIN/GLOBULIN RATIO 0.3 (1.1-1.5); ALKALINE PHOSPHATASE 279 IU/L (46-116); ANION GAP 9 (8-16); ASPARTATE AMINO TRANSFERASE 30 U/L (10-37); BLOOD UREA NITROGEN 89 MG/DL (7-18); BUN/CREATININE RATIO 31.3 (10.0-20.0); CALCIUM 8.3 MG/DL (8.5-10.1); CHLORIDE 98 MMOL/L (99-107); CREATININE 2.84 MG/DL (0.60-1.10); GLUCOSE 87 MG/DL (70-104); MAGNESIUM 1.8 MG/DL (1.5-2.4); PHOSPHORUS 4.6 MG/DL (2.3-4.5); POTASSIUM 4.3 MMOL/L (3.5-5.1); SODIUM 135 MMOL/L (135-145); TOTAL CARBON DIOXIDE 27.8 MMOL/L (24-32); eCRCL 25 ML/MIN; eGFR 22 ML/MIN
[2023-04-12] MEDS: magnesium Cl slow-release 64mg tablet PO SCH ×2 (09:29→20:20)
[2023-04-12 12:05] LABS: BASOPHILS # (AUTO) 0.1 X10'3 (0-0.2); BASOPHILS % (AUTO) 0.7 % (0-1); EOSINOPHILS # (AUTO) 0.2 X10'3 (0-0.9); EOSINOPHILS % (AUTO) 2.5 % (0-6); HEMATOCRIT 34.5 % (42.0-52.0); HEMOGLOBIN 11.3 g/dl (14.0-17.9); LYMPHOCYTES # (AUTO) 0.3 X10'3 (1.1-4.8); LYMPHOCYTES % (AUTO) 2.9 % (21-51); MEAN CORPUSCULAR HEMOGLOBIN 30.9 PG (27.0-31.0); MEAN CORPUSCULAR HGB CONC 32.7 g/dL (33.0-36.5); MEAN CORPUSCULAR VOLUME 94.4 FL (78-98); MEAN PLATELET VOLUME 8.8 FL (7.4-10.4); MONOCYTES # (AUTO) 0.6 X10'3 (0-0.9); MONOCYTES % (AUTO) 7.4 % (2-12); NEUTROPHILS # (AUTO) 7.5 X10'3 (1.8-7.7); NEUTROPHILS % (AUTO) 86.5 % (42-75); PLATELET COUNT 196 X10'3 (140-440); RED BLOOD COUNT 3.65 X10'6 (4.70-6.10); RED CELL DISTRIBUTION WIDTH 21.7 % (11.5-14.5); WHITE BLOOD COUNT 8.6 X10'3 (4.5-11.0)
[2023-04-12] MEDS: ondansetron 4mg rapidly disintigrating tab PO PRN (12:25)
[2023-04-12 12:47] LABS: ANISOCYTOSIS 3+; HYPOCHROMASIA 1+; PLATELET ESTIMATE NORMAL
[2023-04-12] MEDS ORDERED: warfarin 3mg tablet PO ONE (21:00)
[2023-04-13] VITALS (11 sets, daily range): BP systolic 98–111; BP diastolic 32–77; PULSE 65–71; RESP 16–18; TEMP 97–97.6; O2SAT 95–99
[2023-04-13] MEDS: acetaminophen 325mg tablet PO PRN ×3 (03:51→23:14)
[2023-04-13 07:06] LABS: BASOPHILS # (AUTO) 0.1 X10'3 (0-0.2); EOSINOPHILS # (AUTO) 0.3 X10'3 (0-0.9); EOSINOPHILS % (AUTO) 3.5 % (0-6); HEMATOCRIT 33.6 % (42.0-52.0); HEMOGLOBIN 11.2 g/dl (14.0-17.9); LYMPHOCYTES # (AUTO) 0.3 X10'3 (1.1-4.8); LYMPHOCYTES % (AUTO) 3.5 % (21-51); MEAN CORPUSCULAR HEMOGLOBIN 30.9 PG (27.0-31.0); MEAN CORPUSCULAR HGB CONC 33.3 g/dL (33.0-36.5); MONOCYTES # (AUTO) 0.6 X10'3 (0-0.9); MONOCYTES % (AUTO) 7.1 % (2-12); NEUTROPHILS # (AUTO) 6.7 X10'3 (1.8-7.7); NEUTROPHILS % (AUTO) 84.9 % (42-75); PLATELET COUNT 183 X10'3 (140-440); RED BLOOD COUNT 3.61 X10'6 (4.70-6.10); RED CELL DISTRIBUTION WIDTH 21.3 % (11.5-14.5); WHITE BLOOD COUNT 7.9 X10'3 (4.5-11.0)
[2023-04-13 07:18] LABS: INR 3.9 INR; PROTHROMBIN TIME 38.1 SECONDS (9.0-12.0)
[2023-04-13 07:34] LABS: ALANINE AMINOTRANSFERASE 32 U/L (12-78); ALBUMIN 1.6 G/DL (3.4-5.0); ALBUMIN/GLOBULIN RATIO 0.3 (1.1-1.5); ALKALINE PHOSPHATASE 279 IU/L (46-116); ANION GAP 8 (8-16); ASPARTATE AMINO TRANSFERASE 24 U/L (10-37); BILIRUBIN,TOTAL 0.8 MG/DL (0.1-1.0); BLOOD UREA NITROGEN 86 MG/DL (7-18); BUN/CREATININE RATIO 31.6 (10.0-20.0); CALCIUM 8.1 MG/DL (8.5-10.1); CHLORIDE 97 MMOL/L (99-107); CREATININE 2.72 MG/DL (0.60-1.10); GLUCOSE 93 MG/DL (70-104); POTASSIUM 4.6 MMOL/L (3.5-5.1); SODIUM 132 MMOL/L (135-145); TOTAL CARBON DIOXIDE 26.7 MMOL/L (24-32); TOTAL PROTEIN 6.7 G/DL (6.4-8.2); eCRCL 26 ML/MIN; eGFR 23 ML/MIN
[2023-04-13] MEDS: metoprolol succinate 25mg (24-HOUR) SR. Tablet PO SCH (08:00)
[2023-04-13] MEDS: magnesium Cl slow-release 64mg tablet PO SCH ×2 (08:00→20:19)
[2023-04-13] MEDS: spironolactone 25 MG tablet PO SCH (08:00)
[2023-04-13] MEDS: ESCITALOPRAM 10 mg tablet 10 MG TABLET PO SCH (08:06)
[2023-04-13] MEDS: multivitamins, therapeutics tablet PO SCH (08:07)
[2023-04-13] MEDS: predniSONE 1 mg tablet PO SCH (08:07)
[2023-04-13] MEDS: allopurinol 100mg tablet PO SCH (08:08)
[2023-04-13] MEDS: hydroxychloroquine 200mg tablet PO SCH (08:09)
[2023-04-13] MEDS: cholecalciferol (vitamin D3) 1,000 unit (25mcg) tablet PO SCH (08:09)
[2023-04-13] MEDS: iron sucrose complex injection 200 MG in normal saline 100ml IV soln 100 ML IV SCH (08:11)
[2023-04-13] MEDS: EMPAGLIFLOZIN 10 MG TABLET PO SCH (10:03)
[2023-04-14 02:00] VITALS: BP 110/76; PULSE 70; RESP 18; TEMP 97.4; O2SAT 94
[2023-04-14] MEDS: ondansetron 4mg rapidly disintigrating tab PO PRN (03:31)
[2023-04-14 06:00] VITALS: BP 113/86; PULSE 70; RESP 16; TEMP 97.3; O2SAT 94
[2023-04-14 06:43] LABS: ALANINE AMINOTRANSFERASE 24 U/L (12-78); ALBUMIN 1.6 G/DL (3.4-5.0); ALBUMIN/GLOBULIN RATIO 0.3 (1.1-1.5); ALKALINE PHOSPHATASE 276 IU/L (46-116); ANION GAP 8 (8-16); ASPARTATE AMINO TRANSFERASE 25 U/L (10-37); BILIRUBIN,TOTAL 0.8 MG/DL (0.1-1.0); BLOOD UREA NITROGEN 85 MG/DL (7-18); BUN/CREATININE RATIO 30.4 (10.0-20.0); CALCIUM 8.1 MG/DL (8.5-10.1); CHLORIDE 97 MMOL/L (99-107); GLUCOSE 94 MG/DL (70-104); POTASSIUM 4.8 MMOL/L (3.5-5.1); SODIUM 133 MMOL/L (135-145); TOTAL CARBON DIOXIDE 28.2 MMOL/L (24-32); eCRCL 25 ML/MIN; eGFR 23 ML/MIN
[2023-04-14 06:44] LABS: HEMOGLOBIN 11.7 g/dl (14.0-17.9); PLATELET COUNT 182 X10'3 (140-440); WHITE BLOOD COUNT 6.9 X10'3 (4.5-11.0)
[2023-04-14 06:47] LABS: BASOPHILS % (AUTO) 0.7 % (0-1); EOSINOPHILS # (AUTO) 0.2 X10'3 (0-0.9); EOSINOPHILS % (AUTO) 2.9 % (0-6); HEMATOCRIT 35.3 % (42.0-52.0); LYMPHOCYTES # (AUTO) 0.3 X10'3 (1.1-4.8); LYMPHOCYTES % (AUTO) 4.1 % (21-51); MEAN CORPUSCULAR HGB CONC 33.2 g/dL (33.0-36.5); MEAN CORPUSCULAR VOLUME 93.5 FL (78-98); MEAN PLATELET VOLUME 8.4 FL (7.4-10.4); MONOCYTES # (AUTO) 0.4 X10'3 (0-0.9); MONOCYTES % (AUTO) 5.9 % (2-12); NEUTROPHILS % (AUTO) 86.4 % (42-75); RED BLOOD COUNT 3.77 X10'6 (4.70-6.10); RED CELL DISTRIBUTION WIDTH 21.3 % (11.5-14.5)
[2023-04-14 07:06] LABS: INR 4.3 INR
[2023-04-14 10:00] VITALS: BP 120/69; PULSE 70; RESP 20; TEMP 97.9; O2SAT 96
[2023-04-14 11:15] VITALS: RESP 20; O2SAT 96
[2023-04-14] MEDS: ESCITALOPRAM 10 mg tablet 10 MG TABLET PO SCH (11:22)
[2023-04-14] MEDS: multivitamins, therapeutics tablet PO SCH (11:23)
[2023-04-14] MEDS: hydroxychloroquine 200mg tablet PO SCH (11:23)
[2023-04-14] MEDS: metoprolol succinate 25mg (24-HOUR) SR. Tablet PO SCH (11:23)
[2023-04-14] MEDS: allopurinol 100mg tablet PO SCH (11:23)
[2023-04-14] MEDS: spironolactone 25 MG tablet PO SCH (11:23)
[2023-04-14] MEDS: predniSONE 1 mg tablet PO SCH (11:23)
[2023-04-14] MEDS: cholecalciferol (vitamin D3) 1,000 unit (25mcg) tablet PO SCH (11:24)
[2023-04-14] MEDS: EMPAGLIFLOZIN 10 MG TABLET PO SCH (11:24)
[2023-04-14] MEDS: iron sucrose complex injection 200 MG in normal saline 100ml IV soln 100 ML IV SCH (11:24)
[2023-04-14 12:08] LABS: MAGNESIUM 2.1 MG/DL (1.5-2.4)
[2023-04-14] MEDS: magnesium Cl slow-release 64mg tablet PO SCH ×2 (12:23→19:18)
[2023-04-14 14:00] VITALS: BP 98/58; PULSE 70; RESP 15; TEMP 98.1; O2SAT 97
[2023-04-14 15:41] VITALS: PULSE 70; RESP 18; O2SAT 95
[2023-04-14] MEDS: acetaminophen 325mg tablet PO PRN (19:19)
== END 2023-04-14 19:38 | DRG 280 ==
LOC: ER 20:53 → ED HOLD 04-05 01:30 → PCU 3S 04-05 16:10
PROVIDERS: ADMIT Family Medicine; ATTEND Family Medicine
DX: I13.0 Hypertensive heart and chronic kidney disease with heart failure and stage 1 through stage 4 chronic kidney disease, or unspecified chronic kidney disease (principal); G93.41 Metabolic encephalopathy; I21.A1 Myocardial infarction type 2; J18.9 Pneumonia, unspecified organism; I50.23 Acute on chronic systolic (congestive) heart failure; J96.20 Acute and chronic respiratory failure, unspecified whether with hypoxia or hypercapnia; N17.9 Acute kidney failure, unspecified; D68.9 Coagulation defect, unspecified; N18.4 Chronic kidney disease, stage 4 (severe); I48.91 Unspecified atrial fibrillation; I08.1 Rheumatic disorders of both mitral and tricuspid valves; I27.20 Pulmonary hypertension, unspecified; M06.9 Rheumatoid arthritis, unspecified; Z20.822 Contact with and (suspected) exposure to COVID-19; I73.9 Peripheral vascular disease, unspecified; I25.10 Atherosclerotic heart disease of native coronary artery without angina pectoris; M10.9 Gout, unspecified; Z95.0 Presence of cardiac pacemaker; Z95.2 Presence of prosthetic heart valve; Z87.891 Personal history of nicotine dependence; Z79.01 Long term (current) use of anticoagulants; Z79.899 Other long term (current) drug therapy; Z99.81 Dependence on supplemental oxygen
CPT/HCPCS: 36415; 70200; 70551; 71045; 76700; 80053; 80061; 81003; 82607; 82728; 83036; 83540; 83550; 83605; 83735; 83880; 84100; 84145; 84439; 84443; 84484; 85008; 85025; 85379; 85610; 85730; 87040; 87081; 87811; 93005; 93306; 93880; 93922; 93925; 93930; 94760; 96365; 97110; 97116; 97161; 97530; 99285; A6212; A6213; G0378; J0456; J0696; J1756; J1940; J3475; J3490; J7030; J7040; J7512

== ENCOUNTER 2023-05-19 08:35 | Emergency (ER) | payer OTHER, MEDICARE ==
[~2023-05-19] VITALS: Ht 185.4 cm; Wt 90.0 kg
[~2023-05-19 08:35] MED LIST changes: -LISI10TA27 PO; -WARF-65 PO; -WARF6TAB49 PO
[2023-05-19 09:03] VITALS: TEMP 97.7
[2023-05-19 10:41] LABS: BASOPHILS # (AUTO) 0.1 X10'3 (0-0.2); BASOPHILS % (AUTO) 0.8 % (0-1); EOSINOPHILS # (AUTO) 0.2 X10'3 (0-0.9); EOSINOPHILS % (AUTO) 1.9 % (0-6); HEMATOCRIT 29.9 % (42.0-52.0); HEMOGLOBIN 9.8 g/dl (14.0-17.9); LYMPHOCYTES # (AUTO) 0.3 X10'3 (1.1-4.8); LYMPHOCYTES % (AUTO) 3.4 % (21-51); MEAN CORPUSCULAR HEMOGLOBIN 31.1 PG (27.0-31.0); MEAN CORPUSCULAR HGB CONC 32.7 g/dL (33.0-36.5); MEAN CORPUSCULAR VOLUME 95.1 FL (78-98); MEAN PLATELET VOLUME 7.4 FL (7.4-10.4); MONOCYTES # (AUTO) 0.4 X10'3 (0-0.9); MONOCYTES % (AUTO) 4.4 % (2-12); NEUTROPHILS # (AUTO) 7.3 X10'3 (1.8-7.7); NEUTROPHILS % (AUTO) 89.5 % (42-75); PLATELET COUNT 218 X10'3 (140-440); RED BLOOD COUNT 3.15 X10'6 (4.70-6.10); RED CELL DISTRIBUTION WIDTH 19.8 % (11.5-14.5); WHITE BLOOD COUNT 8.2 X10'3 (4.5-11.0)
[2023-05-19 10:59] LABS: BILIRUBIN,URINE NEGATIVE (Neg); CLARITY,URINE SLIGHTLY CLOUDY (Clear); COLOR,URINE YELLOW (Yellow); GLUCOSE, URINE NEGATIVE (Neg); KETONES,URINE NEGATIVE (Neg); LEUKOCYTE ESTERASE ,URINE TRACE (Neg); NITRITES, URINE NEGATIVE (Neg); OCCULT BLOOD,URINE NEGATIVE (Neg); PH,URINE 5.5 (4.8-8.0); PROTEIN,URINE NEGATIVE (Neg); UROBILINOGEN,URINE 0.2 E.U/dL (0.2-1.0)
[2023-05-19 11:05] LABS: ALANINE AMINOTRANSFERASE 39 U/L (12-78); ALBUMIN 1.3 G/DL (3.4-5.0); ALBUMIN/GLOBULIN RATIO 0.3 (1.1-1.5); ALKALINE PHOSPHATASE 319 IU/L (46-116); ANION GAP 8 (8-16); ASPARTATE AMINO TRANSFERASE 48 U/L (10-37); BILIRUBIN,TOTAL 0.7 MG/DL (0.1-1.0); BLOOD UREA NITROGEN 78 MG/DL (7-18); BUN/CREATININE RATIO 51.7 (10.0-20.0); CALCIUM 8.6 MG/DL (8.5-10.1); CHLORIDE 109 MMOL/L (99-107); GLUCOSE 98 MG/DL (70-104); SODIUM 141 MMOL/L (135-145); TOTAL CARBON DIOXIDE 24.2 MMOL/L (24-32); TOTAL PROTEIN 5.9 G/DL (6.4-8.2); eCRCL 51 ML/MIN; eGFR 46 ML/MIN
[2023-05-19 11:06] LABS: UA COLLECTION TYPE CLN CATCH MIDSTREAM
[2023-05-19 11:52] LABS: PRO BRAIN NATRIURETIC PEPTIDE > 3000 PG/ML (0-125)
[2023-05-19 11:58] LABS: BACTERIA,URINE 3+ /HPF (Neg); MUCUS STRANDS NONE SEEN /LPF (Neg); RBC,URINE NONE SEEN /HPF (0-2); SQUAMOUS EPITHELIAL CELL,UR NONE SEEN /LPF (FEW); TRANSITIONAL EPI CELLS,URINE FEW /HPF; WBC CLUMPS,URINE MODERATE /HPF (NEGATIVE); WBC,URINE 30-50 /HPF (0-4)
[2023-05-19 12:25] LABS: CREATININE 1.51 MG/DL (0.60-1.10)
[2023-05-19] MEDS: CefTRIAXone/D5W-Rocephin 1gm 50 ML IV ONE (12:53)
[2023-05-19] MEDS: normal saline 1000ml 1,000 ML IV STA (12:54)
[2023-05-19] MEDS ORDERED: CEPH-585 PO (14:21)
[2023-05-19 14:38] LABS: ANISOCYTOSIS 2+; HYPOCHROMASIA 1+
[2023-05-19 14:39] LABS: PLATELET ESTIMATE NORMAL
[2023-05-19 14:43] LABS: ELLIPTOCYTES FEW; SCHISTOCYTES FEW
[2023-05-19 14:46] LABS: TEAR DROP CELLS FEW
[2023-05-19 15:17] VITALS: BP 106/61; PULSE 70; RESP 20; O2SAT 98
== END 2023-05-19 15:07 | disposition home or self-care (01) ==
LOC: ER 08:36
DX: N39.0 Urinary tract infection, site not specified (principal); I13.0 Hypertensive heart and chronic kidney disease with heart failure and stage 1 through stage 4 chronic kidney disease, or unspecified chronic kidney disease; I50.9 Heart failure, unspecified; N18.9 Chronic kidney disease, unspecified; Z79.899 Other long term (current) drug therapy; Z87.891 Personal history of nicotine dependence
CPT/HCPCS: 36415; 71045; 80053; 81001; 83605; 83735; 83880; 84145; 84484; 85008; 85025; 87040; 87077; 87088; 87186; 93005; 96365; 99285; J0696; A6213